=== PATIENT | male | born 1965 | race Hispanic/Latino ===

== ENCOUNTER 2024-06-18 10:15 | Inpatient (IN) | payer MEDICARE ==
[~2024-06-18] VITALS: Ht 154.9 cm; Wt 62.1 kg
[2024-06-18 10:44] LABS: BASOPHILS # (AUTO) 0.05 K/uL (0.00-0.20); BASOPHILS % (AUTO) 0.6 % (0.0-5.0); EOSINOPHILS # (AUTO) 0.02 K/uL (0.00-0.70); EOSINOPHILS % (AUTO) 0.2 % (0.0-8.0); HEMATOCRIT 34.6 % (42-54); IMMATURE GRANULOCYTE ABSOLUTE 0.05 K/uL (0-1); LYMPHOCYTES # (AUTO) 0.8 K/uL (1.0-4.8); LYMPHOCYTES % (AUTO) 9.4 % (21.0-51.0); MEAN CORPUSCULAR HEMOGLOBIN 29.2 pg (27.0-33.0); MEAN CORPUSCULAR HGB CONC 34.7 g/dL (32.0-36.0); MEAN CORPUSCULAR VOLUME 84.2 fL (79-99); MONOCYTES # (AUTO) 0.4 K/uL (0.1-1.0); MONOCYTES % (AUTO) 4.2 % (3.0-13.0); NEUTROPHILS # (AUTO) 7.3 K/uL (1.8-7.7); PLATELET COUNT (AUTO) 171 K/uL (130-400); RED BLOOD CELL COUNT(AUTO) 4.11 MIL/uL (4.50-6.20); RED CELL DISTRIBUTION WIDTH 12.8 % (11.0-15.5); WHITE BLOOD COUNT (AUTO) 8.6 K/uL (4.8-10.8)
[2024-06-18 11:00] LABS: ALANINE AMINOTRANSFERASE 25 U/L (12-78); ALBUMIN 3.9 g/dL (3.5-5.0); AMMONIA < 10 umol/L (11-32); ASPARTATE AMINOTRANSFERASE 18 U/L (10-37); BILIRUBIN,TOTAL 0.6 mg/dL (0.2-1.0); CARBON DIOXIDE 16 mmol/L (21-32); CREATININE 1.8 mg/dL (0.5-1.3); GLOMERULAR FILTR. RATE CALC 43 mL/min (>90); SODIUM SERUM 126 mmol/L (136-145); TOTAL PROTEIN, SERUM 7.8 g/dL (6.0-8.3); UREA NITROGEN, BLOOD 31 mg/dL (7-18)
[2024-06-18 11:03] LABS: CHLORIDE 88 mmol/L (101-111); GLUCOSE,RANDOM 655 mg/dL (70-105)
[2024-06-18 11:13] LABS: ABG BASE EXCESS -10.6 mmol/L (-2.0-3.0); ABG HCO3 15.2 mmol/L (21.0-28.0); ABG OXYGEN SATURATION 84.3 % (95.0-99.0); ABG PCO2 34 mmHg (35-48); ABG PH 7.267 (7.35-7.450); DEVICE COMMENT NORMA RN RR; PO2, ARTERIAL BG 54.4 mmHg (83.0-108.0); VENT MODE, BG RA (ROOM AIR)
[2024-06-18] MEDS: 0.9%NACL 1000ML 2,109 ML IV ONE (11:48)
[2024-06-18] MEDS: INSULIN humuLIN R 100 UNIT/ML 3ML IV ONE (11:51)
[2024-06-18 11:56] LABS: ADD UA MICROSCOPIC YES; APPEARANCE,URINE CLEAR (CLEAR); BILIRUBIN,URINE NEGATIVE (NEGATIVE); COLOR,URINE COLORLESS (YELLOW); GLUCOSE, URINE (UA) >=1000 mg/dL (NEGATIVE); KETONES,URINE >=80 mg/dL (NEGATIVE); LEUKOCYTE ESTERASE ,URINE NEGATIVE Leu/uL (NEGATIVE); NITRATE,URINE NEGATIVE (NEGATIVE); OCCULT BLOOD,URINE NEGATIVE (NEGATIVE); PROTEIN,URINE NEGATIVE (NEGATIVE); UROBILINOGEN,URINE 0.2 mg/dL (0.2-1.0)
[2024-06-18 12:02] LABS: MUCUS,URINE RARE LPF (None Seen); RBC,URINE 0-1 /HPF (0-1); WBC,URINE 0-1 /HPF (0-1)
[2024-06-18 12:05] LABS: AMPHET/METH SCREEN,URINE NEGATIVE (NEGATIVE); BARBITURATE SCREEN, URINE NEGATIVE (NEGATIVE); BENZODIAZEPINES SCREEN,URINE NEGATIVE (NEGATIVE); CANNABINOID SCREEN,URINE POSITIVE (NEGATIVE); COCAINE SCREEN,URINE POSITIVE (NEGATIVE); OPIATE SCREEN,URINE NEGATIVE (NEGATIVE); PHENCYCLIDINE SCREEN,URINE NEGATIVE (NEGATIVE)
[2024-06-18] MEDS: INSULIN REGULAR, HUMAN 3ML 100 UNIT in 0.9%NACL 100ML 99 ML IV STA (12:40)
[2024-06-18] MEDS ORDERED: 0.9%NACL 1000ML 1,000 ML IV SCH (13:30)
[2024-06-18] MEDS ORDERED: POTASSIUM CHLORIDE 10MEQ/100ML 100 ML IV PRN (13:30)
[2024-06-18] MEDS ORDERED: MAGNESIUM 2GM PREMIX 50ML 50 ML IV SCH (13:30)
[2024-06-18] MEDS ORDERED: INSULIN REGULAR, HUMAN 3ML 100 UNIT in 0.9%NACL 100ML 100 ML IV SCH (13:30)
[2024-06-18] MEDS: D5W-1/2 NS/20MEQ KCL 1,000 ML IV SCH (14:55)
[2024-06-18 15:12] LABS: CREATININE 1.6 mg/dL (0.5-1.3); THYROID STIMULATING HORMONE 2.37 uIU/mL (0.36-3.74)
[2024-06-18] MEDS ORDERED: chlordiazePOXIDE HCL 25 MG CAP PO PRN ×2 (18:00)
[2024-06-18] MEDS ORDERED: PHARMACY COMMUNICATION MISC PRN (18:00)
[2024-06-18 18:21] LABS: CREATININE 1.4 mg/dL (0.5-1.3); POTASSIUM 4.8 mmol/L (3.5-5.1)
[2024-06-18] MEDS: CEFTRIAXONE 2GM VIAL IVPB SCH (18:32)
[2024-06-18] MEDS: NS-20 MEQ KCL 1000ML 1,000 ML IV PRN (20:44)
[2024-06-18] MEDS: INSULIN GLARGINE 100 UNITS/ML 10 ML VIAL SQ SCH (20:46)
[2024-06-18] MEDS ORDERED: FAMOTIDINE 20MG VIAL IV SCH (21:00)
[2024-06-18 21:05] VITALS: BP 135/73; PULSE 72; RESP 16
[2024-06-18 21:10] LABS: CREATININE,URINE RANDOM 57.23 mg/dL (30-135)
[2024-06-18 21:30] VITALS: BP 115/63; PULSE 74; RESP 15
[2024-06-18] MEDS: PROMETHAZINE HCL 25 MG TABLET PO PRN (21:41)
[2024-06-18 21:45] VITALS: BP 125/66; PULSE 72; RESP 15
[2024-06-18 22:00] VITALS: BP 125/66; PULSE 72; RESP 15; O2SAT 98
[2024-06-18 22:47] LABS: CREATININE 1.4 mg/dL (0.5-1.3)
[2024-06-18 23:00] VITALS: BP 109/62; PULSE 69; RESP 25
[2024-06-19] VITALS (10 sets, daily range): BP systolic 104–154; BP diastolic 62–98; PULSE 67–86; RESP 16–22; O2SAT 97–98
[2024-06-19 02:09] LABS: BASOPHILS # (AUTO) 0.05 K/uL (0.00-0.20); BASOPHILS % (AUTO) 0.8 % (0.0-5.0); EOSINOPHILS # (AUTO) 0.12 K/uL (0.00-0.70); EOSINOPHILS % (AUTO) 1.8 % (0.0-8.0); HEMATOCRIT 28.9 % (42-54); IMMATURE GRANULOCYTE ABSOLUTE 0.03 K/uL (0-1); LYMPHOCYTES # (AUTO) 1.6 K/uL (1.0-4.8); LYMPHOCYTES % (AUTO) 23.5 % (21.0-51.0); MEAN CORPUSCULAR HGB CONC 34.6 g/dL (32.0-36.0); MEAN CORPUSCULAR VOLUME 83.8 fL (79-99); MONOCYTES # (AUTO) 0.5 K/uL (0.1-1.0); MONOCYTES % (AUTO) 7.3 % (3.0-13.0); NEUTROPHILS # (AUTO) 4.4 K/uL (1.8-7.7); NEUTROPHILS % (AUTO) 66.1 % (40.0-77.0); PLATELET COUNT (AUTO) 139 K/uL (130-400); RED BLOOD CELL COUNT(AUTO) 3.45 MIL/uL (4.50-6.20); RED CELL DISTRIBUTION WIDTH 13.2 % (11.0-15.5); WHITE BLOOD COUNT (AUTO) 6.6 K/uL (4.8-10.8)
[2024-06-19 02:22] LABS: AMMONIA < 10 umol/L (11-32); CARBON DIOXIDE 24 mmol/L (21-32); CHLORIDE 105 mmol/L (101-111); CREATININE 1.2 mg/dL (0.5-1.3); GLOMERULAR FILTR. RATE CALC 70 mL/min (>90); GLUCOSE,RANDOM 160 mg/dL (70-105); POTASSIUM 3.6 mmol/L (3.5-5.1); SODIUM SERUM 138 mmol/L (136-145); UREA NITROGEN, BLOOD 17 mg/dL (7-18)
[2024-06-19 06:52] LABS: CREATININE 1.1 mg/dL (0.5-1.3); POTASSIUM 4.4 mmol/L (3.5-5.1)
[2024-06-19] MEDS: THIAMINE HCL 100 MG/ML 2ML VIAL IVP SCH (07:54)
[2024-06-19] MEDS: PANTOPRAZOLE 40 MG/VIAL IVP SCH (07:54)
[2024-06-19] MEDS: MULTIVITAMIN TABLET PO SCH (07:54)
[2024-06-19] MEDS: ENOXAPARIN SODIUM 40 MG/0.4 ML SYRINGE SQ SCH (07:55)
[2024-06-19] MEDS: FOLic ACID 5 MG/ML VIAL IV SCH (07:59)
[2024-06-19] MEDS ORDERED: COMPOUND IV REFRIGERATED 1 EACH IVSOLN MISC PRN (08:00)
[2024-06-19] MEDS: INSULIN humuLIN R 100 UNIT/ML 3ML SQ SCH (12:01)
[2024-06-19] MEDS: INSULIN humuLIN R 100 UNIT/ML 3ML ONE (12:04)
[2024-06-19] MEDS ORDERED: SIRO1TAB5 PO (13:35)
[2024-06-19] MEDS ORDERED: MULT-1367 PO (13:35)
[2024-06-19] MEDS ORDERED: [UNRECOGNIZED DRUG - OTHER] (13:35)
[2024-06-19] MEDS ORDERED: PSYL0.4C2 PO (13:35)
[2024-06-19] MEDS ORDERED: TAMS-1 PO (17:54)
[2024-06-19] MEDS ORDERED: PROM25TA7 PO (17:54)
[2024-06-19] MEDS ORDERED: HYDR25TA PO (17:54)
[2024-06-19] MEDS ORDERED: HYDR20TA24 PO (17:54)
[2024-06-19] MEDS ORDERED: PRAV80TA21 PO (17:54)
[2024-06-19] MEDS ORDERED: CYCL5TAB PO (17:54)
[2024-06-19] MEDS ORDERED: ESZO2TAB56 PO (17:54)
[2024-06-19] MEDS ORDERED: ALPR2TAB7 PO (17:54)
[2024-06-19] MEDS ORDERED: NON-FORMULARY MEDICATION 1 EACH (Alprazolam 2 MG) PO PRN (20:00)
[2024-06-19] MEDS ORDERED: ALPRAZolam 1 MG TAB PO PRN (20:30)
[2024-06-20] VITALS (8 sets, daily range): BP systolic 127–171; BP diastolic 77–98; PULSE 80–98; RESP 18–20; O2SAT 97–100
[2024-06-20 03:59] LABS: BASOPHILS # (AUTO) 0.05 K/uL (0.00-0.20); BASOPHILS % (AUTO) 0.8 % (0.0-5.0); EOSINOPHILS # (AUTO) 0.05 K/uL (0.00-0.70); EOSINOPHILS % (AUTO) 0.8 % (0.0-8.0); IMMATURE GRANULOCYTE ABSOLUTE 0.03 K/uL (0-1); LYMPHOCYTES # (AUTO) 0.7 K/uL (1.0-4.8); LYMPHOCYTES % (AUTO) 11.4 % (21.0-51.0); MEAN CORPUSCULAR HEMOGLOBIN 28.9 pg (27.0-33.0); MEAN CORPUSCULAR HGB CONC 33.4 g/dL (32.0-36.0); MEAN CORPUSCULAR VOLUME 86.5 fL (79-99); MONOCYTES # (AUTO) 0.4 K/uL (0.1-1.0); MONOCYTES % (AUTO) 6.6 % (3.0-13.0); NEUTROPHILS % (AUTO) 79.9 % (40.0-77.0); PLATELET COUNT (AUTO) 146 K/uL (130-400); RED CELL DISTRIBUTION WIDTH 13.2 % (11.0-15.5); WHITE BLOOD COUNT (AUTO) 6.2 K/uL (4.8-10.8)
[2024-06-20 04:23] LABS: ALBUMIN 3.2 g/dL (3.5-5.0); BILIRUBIN,TOTAL 0.3 mg/dL (0.2-1.0); CREATININE 1.4 mg/dL (0.5-1.3); MAGNESIUM 1.4 mg/dL (1.80-2.40); PHOSPHORUS 4.5 mg/dL (2.5-4.9); POTASSIUM 3.4 mmol/L (3.5-5.1); TOTAL PROTEIN, SERUM 6.5 g/dL (6.0-8.3)
[2024-06-20] MEDS: INSULIN humuLIN R 100 UNIT/ML 3ML SQ SCH (07:16)
[2024-06-20 08:03] LABS: COVID19 (SARS ANTIGEN RAPID) PRESUMPTIVE NEGATIVE (NEGATIVE); INFLUENZA TYPE A Negative For Type A (NEGATIVE); INFLUENZA TYPE B Negative For Type B (NEGATIVE)
[2024-06-20] MEDS: tamSULOsin HCL 0.4 MG CAP.ER.24H PO SCH (08:34)
[2024-06-20] MEDS: HYDROCORTISONE 20 MG TABLET PO SCH (08:34)
[2024-06-20] MEDS: SIROLIMUS 3 MG PO SCH (08:35)
[2024-06-20] MEDS: MAGNESIUM 2GM PREMIX 50ML 50 ML IV PRN (15:48)
[2024-06-20] MEDS ORDERED: POTASSIUM CHLORIDE 10% ELIXIR 20 MEQ/15 ML UDCUP PO PRN (18:00)
[2024-06-20] MEDS: INSULIN GLARGINE 100 UNITS/ML 10 ML VIAL SQ SCH (21:23)
[2024-06-21] VITALS (8 sets, daily range): BP systolic 112–140; BP diastolic 71–93; PULSE 78–96; RESP 17–20; O2SAT 97–98
[2024-06-21 04:42] LABS: ALANINE AMINOTRANSFERASE 16 U/L (12-78); ALBUMIN 3.2 g/dL (3.5-5.0); ASPARTATE AMINOTRANSFERASE 15 U/L (10-37); BILIRUBIN,TOTAL 0.5 mg/dL (0.2-1.0); CARBON DIOXIDE 28 mmol/L (21-32); CHLORIDE 97 mmol/L (101-111); CREATININE 1.2 mg/dL (0.5-1.3); GLOMERULAR FILTR. RATE CALC 70 mL/min (>90); GLUCOSE,RANDOM 184 mg/dL (70-105); TOTAL PROTEIN, SERUM 6.1 g/dL (6.0-8.3); UREA NITROGEN, BLOOD 11 mg/dL (7-18)
[2024-06-21 05:01] LABS: SODIUM SERUM 134 mmol/L (136-145)
[2024-06-21 05:02] LABS: AMMONIA < 10 umol/L (11-32)
[2024-06-21 05:03] LABS: POTASSIUM 2.9 mmol/L (3.5-5.1)
[2024-06-21] MEDS: POTASSIUM CHLORIDE 20MEQ/100ML 100 ML IV PRN (05:11)
[2024-06-21] MEDS: KCL 20 MEQ ERTAB PO PRN (14:34)
[2024-06-22] VITALS (8 sets, daily range): BP systolic 103–149; BP diastolic 62–91; PULSE 68–99; RESP 18–20; O2SAT 93–100
[2024-06-22 07:14] LABS: MAGNESIUM 1.9 mg/dL (1.80-2.40); POTASSIUM 3.6 mmol/L (3.5-5.1)
[2024-06-22 13:49] LABS: HIV 1&2 ANTIBODY Non-Reactive (Negative); HIV-1 p24 Antigen Non-Reactive (Negative)
[2024-06-23] VITALS: BP 126/76; PULSE 74; RESP 18
[2024-06-23 04:00] VITALS: BP 101/61; PULSE 76; RESP 18
[2024-06-23 04:34] LABS: BASOPHILS # (AUTO) 0.04 K/uL (0.00-0.20); BASOPHILS % (AUTO) 0.6 % (0.0-5.0); EOSINOPHILS # (AUTO) 0.16 K/uL (0.00-0.70); EOSINOPHILS % (AUTO) 2.6 % (0.0-8.0); HEMATOCRIT 33.3 % (42-54); IMMATURE GRANULOCYTE ABSOLUTE 0.03 K/uL (0-1); LYMPHOCYTES # (AUTO) 1.7 K/uL (1.0-4.8); LYMPHOCYTES % (AUTO) 27.9 % (21.0-51.0); MEAN CORPUSCULAR HEMOGLOBIN 28.9 pg (27.0-33.0); MEAN CORPUSCULAR VOLUME 87.6 fL (79-99); MONOCYTES # (AUTO) 0.7 K/uL (0.1-1.0); MONOCYTES % (AUTO) 10.5 % (3.0-13.0); NEUTROPHILS # (AUTO) 3.6 K/uL (1.8-7.7); NEUTROPHILS % (AUTO) 57.9 % (40.0-77.0); PLATELET COUNT (AUTO) 164 K/uL (130-400); RED CELL DISTRIBUTION WIDTH 13.2 % (11.0-15.5); WHITE BLOOD COUNT (AUTO) 6.2 K/uL (4.8-10.8)
[2024-06-23 04:50] LABS: CREATININE 1.3 mg/dL (0.5-1.3); MAGNESIUM 1.6 mg/dL (1.80-2.40); PHOSPHORUS 4.7 mg/dL (2.5-4.9); POTASSIUM 3.4 mmol/L (3.5-5.1)
[2024-06-23 08:00] VITALS: BP 114/67; PULSE 76; RESP 18
[2024-06-23] MEDS ORDERED: HYDR20TA24 PO (11:11)
[2024-06-23] MEDS ORDERED: INSU500I SQ (11:11)
[2024-06-23] MEDS ORDERED: HYDR25TA PO (11:11)
[2024-06-23] MEDS ORDERED: INSU3INS3 SQ (11:11)
[2024-06-23] MEDS: INSULIN humuLIN R 100 UNIT/ML 3ML SQ SCH (11:30)
== END 2024-06-23 12:30 | disposition home or self-care (01) | DRG 637 ==
LOC: EDH 10:15 → EDHIP 13:27 → 2CH 21:15 → 4BH 06-19 13:00
PROVIDERS: ADMIT Internal Medicine; ATTEND Internal Medicine
DX: E11.10 Type 2 diabetes mellitus with ketoacidosis without coma (principal); G92.8 Other toxic encephalopathy; J96.01 Acute respiratory failure with hypoxia; E87.4 Mixed disorder of acid-base balance; N17.9 Acute kidney failure, unspecified; Z94.4 Liver transplant status; I12.9 Hypertensive chronic kidney disease with stage 1 through stage 4 chronic kidney disease, or unspecified chronic kidney disease; N18.9 Chronic kidney disease, unspecified; E11.22 Type 2 diabetes mellitus with diabetic chronic kidney disease; E11.65 Type 2 diabetes mellitus with hyperglycemia; E86.0 Dehydration; E87.8 Other disorders of electrolyte and fluid balance, not elsewhere classified; R79.89 Other specified abnormal findings of blood chemistry; R41.3 Other amnesia; K70.30 Alcoholic cirrhosis of liver without ascites; F12.10 Cannabis abuse, uncomplicated; F14.10 Cocaine abuse, uncomplicated; Z91.199 Patient's noncompliance with other medical treatment and regimen due to unspecified reason; Z79.4 Long term (current) use of insulin; Z79.52 Long term (current) use of systemic steroids; Z79.60 Long term (current) use of unspecified immunomodulators and immunosuppressants; Z63.8 Other specified problems related to primary support group
CPT/HCPCS: 36415; 70450; 70551; 71045; 76770; 80048; 80053; 80195; 80305; 81001; 82010; 82140; 82570; 82607; 82746; 82803; 82948; 83036; 83735; 84100; 84132; 84145; 84300; 84443; 84484; 84540; 85025; 86140; 86701; 87390; 87426; 87804; 93005; 96365; 96375; G0378; J0696; J1650; J1815; J2470; J3411; J3475; J3480; J3490; J7030; Q0169; G8980-CI; G8983-CH